=== PATIENT | female | born 1995 | race Caucasian/White ===

== ENCOUNTER 2017-06-08 17:18 | Emergency (ER) | payer OTHER ==
[2017-06-08] MEDS ORDERED: IPRATROPIUM-ALBUTEROL 3 ML NEB INHALATION STA ×2 (17:31→19:24)
[2017-06-08] MEDS ORDERED: methylPREDNISolone SOD SUCCI 125 MG/2 ML VIAL IM ONE (17:31)
--- NOTE | 2017-06-08 17:37 | ED ---
General Adult HPI - General Chief complaint: Upper Respiratory Infection Stated complaint: Congestion/MALOU Time Seen by Provider: 06/08/17 17:25 Source: patient Mode of arrival: wheelchair Limitations: no limitations - History of Present Illness Initial comments: 21-year-old female patient presents to emergency department today for evaluation of cough, wheezing, and shortness of breath. Patient states that she has been sick with upper respiratory symptoms for the last 5-6 days. Patient states her symptoms started with nasal congestion and a sore throat about 6 days ago. She states she then developed a cough. She states over the last couple of days the cough has been much worse, she states that she initially had production of clear sputum but it has now switched to green. She states that she is unable to sleep due to coughing so much at night. She states whenever she does any activity she becomes short of breath. She states that she can hear wheezing throughout the day and at night. She states she does not have a thermometer and is unsure if she's had fevers, however she does report sweats and chills. She states that she does get sharp pains in her chest with coughing. Patient denies any recent abdominal pain, nausea, vomiting , diarrhea, constipation, back pain, numbness, tingling, dizziness, weakness, hematuria, dysuria, urinary urgency, urinary frequency, headache, visual changes , or any other complaints. She does report smoking cigarettes. She states that she has been trying DayQuil and NyQuil without relief of symptoms. She denies any significant past medical history. She denies any use of oral contraceptives, recent travel, leg swelling, or calf pain. - Related Data Previous Rx's Medication Instructions Recorded Albuterol Sulfate [Proair Hfa] 1 - 2 puff INHALATION Q6HR PRN #1 06/08/17 inhaler Guaifenesin/Pseudoephedrne HCl 1 each PO BID #10 tab.er.12h 06/08/17 [Mucinex D ER Tablet] predniSONE 50 mg PO DAILY #7 tablet 06/08/17 Allergies Allergy/AdvReac Type Severity Reaction Status Date / Time Sulfa (Sulfonamide Allergy Dyspnea Verified 06/08/17 18:30 Antibiotics) Review of Systems ROS Statement: Those systems with pertinent positive or pertinent negative responses have been documented in the HPI. ROS Other: All systems not noted in ROS Statement are negative. Past Medical History Past Medical History: No Reported History History of Any Multi-Drug Resistant Organisms: None Reported Past Surgical History: Appendectomy, Cholecystectomy Past Psychological History: Anxiety, Bipolar Smoking Status: Current every day smoker Past Alcohol Use History: Occasional Past Drug Use History: Marijuana General Exam Limitations: no limitations General appearance: alert, in no apparent distress, obese, other (Well-developed , obese female patient sitting upright in bed. Appears to be in no acute distress. Vital signs upon presentation were temperature 99.1F, pulse 110, respirations 20, blood pressure 133/80, pulse ox 92% on room air.) Eye exam: Present: normal appearance, PERRL, EOMI. Absent: scleral icterus, conjunctival injection, periorbital swelling ENT exam: Present: normal exam, normal oropharynx, mucous membranes moist, TM's normal bilaterally Neck exam: Present: normal inspection. Absent: tenderness, meningismus, lymphadenopathy Respiratory exam: Present: normal lung sounds bilaterally, wheezes (Course expiratory wheezes noted throughout all posterior lung nunez.), chest wall tenderness. Absent: respiratory distress, rales, rhonchi, stridor Cardiovascular Exam: Present: regular rate, normal rhythm, normal heart sounds. Absent: systolic murmur, diastolic murmur, rubs, gallop, clicks GI/Abdominal exam: Present: soft, normal bowel sounds. Absent: distended, tenderness, guarding, rebound, rigid Back exam: Present: normal inspection. Absent: tenderness Neurological exam: Present: alert, oriented X3, CN II-XII intact Psychiatric exam: Present: normal affect, normal mood Skin exam: Present: warm, dry, intact, normal color. Absent: rash Course Vital Signs 06/08/17 06/08/17 06/08/17 17:21 17:52 18:39 Temperature 99.1 F 98.8 F Pulse Rate 110 H 110 H 72 Respiratory 20 18 Rate Blood Pressure 133/80 124/57 O2 Sat by Pulse 92 L 95 Oximetry Medical Decision Making - Medical Decision Making 21-year-old female patient percents to emergency department today for evaluation of shortness of breath, cough, and nasal congestion and drainage. Chest x-ray was negative for any acute cardiopulmonary process. Vital signs and symptoms did improve somewhat with albuterol and Atrovent nebulizer treatment. Patient has not been on any recent trips, denies use of oral contraceptives, denies any calf pain or leg swelling. It is thought this time that her symptoms are related to acute bronchitis. She will be discharged home with a course of steroids, given Mucinex D, and a pro-air inhaler for symptom management. She is instructed to increase her fluids. She is instructed to return here immediately for any new, worsening, or concerning symptoms. Patient verbalizes understanding and agrees with this plan. - Radiology Data Radiology results: report reviewed, image reviewed Frontal and lateral views of the chest are obtained and show areas are unremarkable. There is no focal airspace opacity, pleural effusion, or pneumothorax seen. The cardiac silhouette is within normal limits. The osseous structures are intact. Impression by Dr. Grady shows no acute cardiopulmonary process. Disposition Clinical Impression: Acute bronchitis Disposition: HOME SELF-CARE Condition: Good Instructions: Acute Bronchitis (ED), Wheezing (ED) Additional Instructions: Increase fluids. Use medications as directed. Follow-up with her primary care physician for recheck in 1-2 days. Return here immediately for any new, worsening, or concerning symptoms. Prescriptions: Albuterol Sulfate [Proair Hfa] 1 - 2 puff INHALATION Q6HR PRN #1 inhaler PRN Reason: Shortness of Breath/Wheezing Guaifenesin/Pseudoephedrne HCl [Mucinex D ER Tablet] 1 each PO BID #10 tab.er.12h predniSONE 50 mg PO DAILY #7 tablet Referrals: Larry Aragon MD [Primary Care Provider] - 1-2 days Time of Disposition: 19:26
[2017-06-08] MEDS ORDERED: IBUPROFEN 800 MG TAB PO STA (18:26)
[2017-06-08 18:41] VITALS: RESP 18
--- NOTE | 2017-06-08 18:57 | XR ---
EXAMINATION TYPE: XR chest 2V DATE OF EXAM: 06/08/2017 COMPARISON: 02/06/2016 HISTORY: Dyspnea and pain and cough TECHNIQUE: Frontal and lateral views of the chest are obtained. FINDINGS: Airways are unremarkable. There is no focal air space opacity, pleural effusion, or pneumo thorax seen. The cardiac silhouette size is within normal limits. The osseous structures are intac t. IMPRESSION: No acute cardiopulmonary process.
[2017-06-08] MEDS ORDERED: KETOROLAC 60 MG/2 ML VIAL IM STA (19:26)
[2017-06-08 20:02] VITALS: BP 134/92; PULSE 104; TEMP 98.4
== END 2017-06-08 20:01 | disposition home or self-care (01) ==
LOC: EC 17:18
DX: J20.9 Acute bronchitis, unspecified (principal); E66.9 Obesity, unspecified; F17.210 Nicotine dependence, cigarettes, uncomplicated; Z88.2 Allergy status to sulfonamides; Z68.36 Body mass index [BMI] 36.0-36.9, adult
CPT/HCPCS: 94640 ×2; 71020; 99284; 96372 ×2; J2930; J1885

== ENCOUNTER 2018-11-06 00:12 | Emergency (ER) | payer OTHER ==
[2018-11-06 00:20] VITALS: BP 128/85; PULSE 98; RESP 20; TEMP 98.5
[2018-11-06] MEDS ORDERED: guaiFENesin-DM 600/30MG 1 EACH TAB.ER.12H PO STA (00:38)
[2018-11-06] MEDS ORDERED: IBUPROFEN 600 MG TAB PO STA (00:38)
[2018-11-06] MEDS ORDERED: ACETAMINOPHEN TAB 500 MG TAB PO STA (00:38)
--- NOTE | 2018-11-06 00:41 | ED ---
URI HPI - General Chief Complaint: Upper Respiratory Infection Stated Complaint: Sore Throat,Cough Time Seen by Provider: 11/06/18 00:21 Source: patient Mode of arrival: ambulatory Limitations: no limitations - History of Present Illness Initial Comments: 23-year-old female patient presents to the emergency department today for evaluation of cough, nasal congestion, and sore throat. Patient states she's also been feeling nauseated with this. Patient states symptoms started earlier in the afternoon. States she has been feverish and chilled. She denies taking any medications for her symptoms. She denies any sick contacts. States she has not had influenza vaccine. She denies any shortness of breath. Denies any rash. Patient denies any recent chest pain, abdominal pain, nausea, vomiting, diarrhea, constipation, back pain, numbness, tingling, dizziness, weakness, hematuria, dysuria, urinary urgency, urinary frequency, headache, visual changes , or any other complaints. She denies chance of . - Related Data Previous Rx's Medication Instructions Recorded Albuterol Sulfate [Proair Hfa] 1 - 2 puff INHALATION Q6HR PRN #1 06/08/17 inhaler Guaifenesin/Pseudoephedrne HCl 1 each PO BID #10 tab.er.12h 06/08/17 [Mucinex D ER Tablet] predniSONE 50 mg PO DAILY #7 tablet 06/08/17 guaiFENesin-DM 600/30MG [Mucinex 1 each PO Q12HR #10 tab.er.12h 11/06/18 Dm] Allergies Allergy/AdvReac Type Severity Reaction Status Date / Time Sulfa (Sulfonamide Allergy Dyspnea Verified 11/06/18 00:20 Antibiotics) Review of Systems ROS Statement: Those systems with pertinent positive or pertinent negative responses have been documented in the HPI. ROS Other: All systems not noted in ROS Statement are negative. Past Medical History Past Medical History: No Reported History History of Any Multi-Drug Resistant Organisms: None Reported Past Surgical History: Appendectomy, Cholecystectomy Past Psychological History: Anxiety, Bipolar Smoking Status: Current every day smoker Past Alcohol Use History: Occasional Past Drug Use History: Marijuana General Exam Limitations: no limitations General appearance: alert, in no apparent distress, other (This is a well- developed, well-nourished adult female patient in no acute distress. Vital signs upon presentation are temperature 98.5F, pulse 90, respirations 20, blood pressure 120/85, pulse ox 96% on room air.) Eye exam: Present: normal appearance, PERRL, EOMI. Absent: scleral icterus, conjunctival injection, periorbital swelling ENT exam: Present: mucous membranes moist, TM's normal bilaterally (No injection , no effusion). Absent: normal exam, normal oropharynx (Pharyngeal erythema, tonsillar hypertrophy and exudate noted) Neck exam: Present: normal inspection, lymphadenopathy (Anterior cervical lymphadenopathy). Absent: tenderness, meningismus Respiratory exam: Present: normal lung sounds bilaterally. Absent: respiratory distress, wheezes, rales, rhonchi, stridor Cardiovascular Exam: Present: regular rate, normal rhythm, normal heart sounds. Absent: systolic murmur, diastolic murmur, rubs, gallop, clicks GI/Abdominal exam: Present: soft, normal bowel sounds. Absent: distended, tenderness, guarding, rebound, rigid Neurological exam: Present: alert, oriented X3, CN II-XII intact Psychiatric exam: Present: normal affect, normal mood Skin exam: Present: warm, dry, intact, normal color. Absent: rash Course Vital Signs 11/06/18 00:17 Temperature 98.5 F Pulse Rate 98 Respiratory 20 Rate Blood Pressure 128/85 O2 Sat by Pulse 96 Oximetry Medical Decision Making - Medical Decision Making 23-year-old female patient presents to the emergency department today for complaints of sore throat, cough, nasal congestion a started earlier today. Physical examination did reveal pharyngeal erythema with tonsillar hypertrophy and exudate. She did have anterior cervical lymphadenopathy. Patient did have a productive sounding cough. Lungs are clear to auscultation. Chest x-ray showed no acute cardio pulmonary process. Strep and influenza testing was negative. Patient symptoms are consistent with viral upper respiratory infection. We did discuss supportive care. She'll be given a prescription for Mucinex DM. She is instructed to alternate Tylenol and Motrin and instructed to increase fluids. She is instructed to follow-up with her primary care physician for recheck in 1-2 days. Return parameters were discussed in detail. She verbalizes understanding and agrees with this plan. - Lab Data Lab Results 11/06/18 11/06/18 Range/Units 00:49 01:02 Influenza Type A RNA Not Detected (Not Detectd) Influenza Type B (PCR) Not Detected (Not Detectd) Group A Strep Rapid Negative (Negative) - Radiology Data Radiology results: report reviewed, image reviewed Two-view x-ray of the chest is obtained. Report was reviewed in its entirety. Impression by Dr. López shows no evidence of acute disease. Disposition Clinical Impression: Viral upper respiratory infection Disposition: HOME SELF-CARE Condition: Good Instructions (If sedation given, give patient instructions): Upper Respiratory Infection (ED) Additional Instructions: Increase fluids. Take medications as directed. Alternate Tylenol Motrin for discomfort. Follow-up with your primary care physician for recheck in 1-2 days. Return to the emergency department immediately for any new, worsening, or concerning symptoms. Prescriptions: guaiFENesin-DM 600/30MG [Mucinex Dm] 1 each PO Q12HR #10 tab.er.12h Is patient prescribed a controlled substance at d/c from ED?: No Referrals: [facility] [NON-STAFF] - 1-2 days Time of Disposition: 01:41
--- NOTE | 2018-11-06 01:19 | XR ---
History: ITS.REASON XR Reason: Pain Exam: XR CXR 2 VIEWS Comparison: 06/08/2017 FINDINGS: The lungs are clear. The cardiac and mediastinal contours are within limits. The visualized osseous structures appear within limits. IMPRESSION: No evidence of acute disease.
[2018-11-06] MEDS ORDERED: ONDANSETRON 4 MG ODT STARTER PACK 2 TAB BTL PO STA (01:41)
== END 2018-11-06 01:48 | disposition home or self-care (01) ==
LOC: EC 00:12
DX: J06.9 Acute upper respiratory infection, unspecified (principal); F17.200 Nicotine dependence, unspecified, uncomplicated; Z88.2 Allergy status to sulfonamides; Z90.49 Acquired absence of other specified parts of digestive tract
CPT/HCPCS: 71046; 87081; 87430; 87502; 99284

== ENCOUNTER 2018-12-05 19:56 | Emergency (ER) | payer OTHER ==
[2018-12-05] MEDS ORDERED: KETOROLAC 30 MG/ML 1 ML VIAL IVP STA (20:25)
[2018-12-05] MEDS ORDERED: PANTOPRAZOLE 40 MG/10 ML VIAL IVP STA (20:25)
[2018-12-05] MEDS ORDERED: ONDANSETRON 4 MG/2 ML VIAL IVP STA (20:25)
[2018-12-05] MEDS ORDERED: SODIUM CHLORIDE 0.9% 1,000 ML IV STA ×2 (20:25)
--- NOTE | 2018-12-05 20:31 | ED ---
Abdominal Pain HPI - General Source: patient, RN notes reviewed, old records reviewed Mode of arrival: ambulatory Limitations: no limitations <Kerry Boland - Last Filed: 12/05/18 20:31> <Karol Garcia - Last Filed: 12/05/18 22:10> - General Chief Complaint: Abdominal Pain Stated Complaint: Abd pain Time Seen by Provider: 12/05/18 20:02 - History of Present Illness Initial Comments: Patient is a 23-year-old female presents emergency Department today with chief complaint of nausea vomiting diarrhea for the past 3 days. She reports his been having chills off and on. Her complaint of runny nose and URI symptoms. Patient states that she has diffuse abdominal tenderness. Surgical history includes appendectomy and cholecystectomy. No significant past medical history. Patient states that she's had no associated chest pain or shortness breath. (Kerry Boland) - Related Data Home Medications Medication Instructions Recorded Confirmed Acetaminophen Tab [Tylenol Tab] 650 mg PO Q6H PRN 12/05/18 12/05/18 Previous Rx's Medication Instructions Recorded Famotidine [Pepcid] 20 mg PO BID #14 tablet 12/05/18 Ondansetron Odt [Zofran Odt] 4 mg PO Q8HR PRN #12 tab 12/05/18 Allergies Allergy/AdvReac Type Severity Reaction Status Date / Time Sulfa (Sulfonamide Allergy Dyspnea Verified 12/05/18 20:26 Antibiotics) Review of Systems ROS Other: All systems not noted in ROS Statement are negative. <Kerry Boland - Last Filed: 12/05/18 20:31> ROS Other: All systems not noted in ROS Statement are negative. <Karol Garcia P - Last Filed: 12/05/18 22:10> ROS Statement: Those systems with pertinent positive or pertinent negative responses have been documented in the HPI. Past Medical History Past Medical History: No Reported History History of Any Multi-Drug Resistant Organisms: None Reported Past Surgical History: Appendectomy, Cholecystectomy Past Psychological History: Anxiety, Bipolar Smoking Status: Current every day smoker Past Alcohol Use History: Occasional Past Drug Use History: Marijuana <Kerry Boland - Last Filed: 12/05/18 20:31> General Exam Limitations: no limitations General appearance: alert, in no apparent distress Head exam: Present: atraumatic, normocephalic, normal inspection Eye exam: Present: normal appearance, PERRL, EOMI. Absent: scleral icterus, conjunctival injection, periorbital swelling ENT exam: Present: normal exam, mucous membranes moist Neck exam: Present: normal inspection. Absent: tenderness, meningismus, lymphadenopathy Respiratory exam: Present: normal lung sounds bilaterally. Absent: respiratory distress, wheezes, rales, rhonchi, stridor Cardiovascular Exam: Present: regular rate, normal rhythm, normal heart sounds. Absent: systolic murmur, diastolic murmur, rubs, gallop, clicks GI/Abdominal exam: Present: soft, tenderness, normal bowel sounds. Absent: distended, guarding, rebound, rigid Extremities exam: Present: normal inspection, full ROM, normal capillary refill. Absent: tenderness, pedal edema, joint swelling, calf tenderness Back exam: Present: normal inspection Neurological exam: Present: alert, oriented X3, CN II-XII intact Psychiatric exam: Present: normal affect, normal mood Skin exam: Present: warm, dry, intact, normal color. Absent: rash <Kerry Boland - Last Filed: 12/05/18 20:31> - General Exam Comments Initial Comments: 23-year-old female. Alert and oriented 3. No significant distress. (Kerry Boland) Course Vital Signs 12/05/18 19:58 Temperature 98.6 F Pulse Rate 107 H Respiratory 20 Rate Blood Pressure 137/92 O2 Sat by Pulse 97 Oximetry Medical Decision Making - Radiology Data Radiology results: report reviewed <Kerry Boland - Last Filed: 12/05/18 20:31> - Lab Data Result diagrams: 12/05/18 20:33 12/05/18 20:33 <Karol Garcia - Last Filed: 12/05/18 22:10> - Medical Decision Making This is a [id number] female who presents emergency department today with nausea and vomiting diarrhea since the past 4 days. Patient was given IV fluids labwork obtained. Patient's labwork was reviewed and unremarkable. Urinalysis is negative for infection. Patient has had an chills no known fever. She was of diffuse abdominal tenderness. She was given Protonix Toradol and Zofran. Discussed at this time Patient is likely some gastroenteritis. Discussed that she can follow-up with PCP. Discussed return parameters. We'll discharge the Patient with a prescription for nausea medication. (Kerry Boland) I was available for consultation in the emergency department. The history and physical exam were done by the Midlevel Provider. Medical decision making was do ne by the Midlevel Provider. The Midlevel Provider did not contact me for this patient's care. I was not directly involved in this patient's care. (Karol Garcia) - Lab Data Lab Results 12/05/18 12/05/18 12/05/18 Range/Units 20:33 20:33 20:33 WBC 5.9 (3.8-10.6) k/uL RBC 4.70 (3.80-5.40) m/uL Hgb 15.3 (11.4-16.0) gm/dL Hct 44.7 (34.0-46.0) % MCV 95.1 (80.0-100.0) fL MCH 32.6 (25.0-35.0) pg MCHC 34.3 (31.0-37.0) g/dL RDW 12.8 (11.5-15.5) % Plt Count 185 (150-450) k/uL Neutrophils % 58 % Lymphocytes % 29 % Monocytes % 8 % Eosinophils % 4 % Basophils % 0 % Neutrophils # 3.5 (1.3-7.7) k/uL Lymphocytes # 1.7 (1.0-4.8) k/uL Monocytes # 0.5 (0-1.0) k/uL Eosinophils # 0.2 (0-0.7) k/uL Basophils # 0.0 (0-0.2) k/uL Sodium 138 (137-145) mmol/L Potassium 4.0 (3.5-5.1) mmol/L Chloride 106 (98-107) mmol/L Carbon Dioxide 24 (22-30) mmol/L Anion Gap 8 mmol/L BUN 12 (7-17) mg/dL Creatinine 0.59 (0.52-1.04) mg/dL Est GFR (CKD-EPI)AfAm >90 (>60 ml/min/1.73 sqM) Est GFR (CKD-EPI)NonAf >90 (>60 ml/min/1.73 sqM) Glucose 114 H (74-99) mg/dL Calcium 8.7 (8.4-10.2) mg/dL Total Bilirubin 0.6 (0.2-1.3) mg/dL AST 23 (14-36) U/L ALT 43 (9-52) U/L Alkaline Phosphatase 66 (38-126) U/L Total Protein 6.7 (6.3-8.2) g/dL Albumin 3.7 (3.5-5.0) g/dL Amylase <30 L (30-110) U/L Lipase 70 (23-300) U/L Urine Color Urine Appearance (Clear) Urine pH (5.0-8.0) Ur Specific [place] (1.001-1.035) Urine Protein (Negative) Urine Glucose (UA) (Negative) Urine Ketones (Negative) Urine Blood (Negative) Urine Nitrite (Negative) Urine Bilirubin (Negative) Urine Urobilinogen (<2.0) mg/dL Ur Leukocyte Esterase (Negative) Urine RBC (0-5) /hpf Urine WBC (0-5) /hpf Ur Squamous Epith Cells (0-4) /hpf Urine Bacteria (None) /hpf Urine Mucus (None) /hpf Urine HCG, Qual (Not Detectd) Influenza Type A RNA Not Detected (Not Detectd) Influenza Type B (PCR) Not Detected (Not Detectd) 12/05/18 12/05/18 Range/Units 20:55 20:55 WBC (3.8-10.6) k/uL RBC (3.80-5.40) m/uL Hgb (11.4-16.0) gm/dL Hct (34.0-46.0) % MCV (80.0-100.0) fL MCH (25.0-35.0) pg MCHC (31.0-37.0) g/dL RDW (11.5-15.5) % Plt Count (150-450) k/uL Neutrophils % % Lymphocytes % % Monocytes % % Eosinophils % % Basophils % % Neutrophils # (1.3-7.7) k/uL Lymphocytes # (1.0-4.8) k/uL Monocytes # (0-1.0) k/uL Eosinophils # (0-0.7) k/uL Basophils # (0-0.2) k/uL Sodium (137-145) mmol/L Potassium (3.5-5.1) mmol/L Chloride (98-107) mmol/L Carbon Dioxide (22-30) mmol/L Anion Gap mmol/L BUN (7-17) mg/dL Creatinine (0.52-1.04) mg/dL Est GFR (CKD-EPI)AfAm (>60 ml/min/1.73 sqM) Est GFR (CKD-EPI)NonAf (>60 ml/min/1.73 sqM) Glucose (74-99) mg/dL Calcium (8.4-10.2) mg/dL Total Bilirubin (0.2-1.3) mg/dL AST (14-36) U/L ALT (9-52) U/L Alkaline Phosphatase (38-126) U/L Total Protein (6.3-8.2) g/dL Albumin (3.5-5.0) g/dL Amylase (30-110) U/L Lipase (23-300) U/L Urine Color Yellow Urine Appearance Clear (Clear) Urine pH 5.5 (5.0-8.0) Ur Specific [place] 1.024 (1.001-1.035) Urine Protein Trace H (Negative) Urine Glucose (UA) Negative (Negative) Urine Ketones Negative (Negative) Urine Blood Negative (Negative) Urine Nitrite Negative (Negative) Urine Bilirubin Negative (Negative) Urine Urobilinogen 2.0 (<2.0) mg/dL Ur Leukocyte Esterase Trace H (Negative) Urine RBC <1 (0-5) /hpf Urine WBC 5 (0-5) /hpf Ur Squamous Epith Cells 4 (0-4) /hpf Urine Bacteria Rare H (None) /hpf Urine Mucus Few H (None) /hpf Urine HCG, Qual Not Detected (Not Detectd) Influenza Type A RNA (Not Detectd) Influenza Type B (PCR) (Not Detectd) - Radiology Data Normal chest. No changes. Abdominal x-ray shows no acute abdomen. No changes. (Kerry Boland) Disposition Is patient prescribed a controlled substance at d/c from ED?: No Time of Disposition: 22:01 <Kerry Boland - Last Filed: 12/05/18 20:31> <Karol Garcia - Last Filed: 12/05/18 22:10> Clinical Impression: Gastroenteritis Disposition: HOME SELF-CARE Condition: Good Instructions (If sedation given, give patient instructions): Gastroenteritis (ED) Additional Instructions: Patient was supposed follow-up with primary care physician. Patient can return to the emergency department if any alarming signs or symptoms occur. Use nausea medicine as needed for vomiting. Prescriptions: Famotidine [Pepcid] 20 mg PO BID #14 tablet Ondansetron Odt [Zofran Odt] 4 mg PO Q8HR PRN #12 tab PRN Reason: Nausea Referrals: Larry Aragon MD [Primary Care Provider] - 1-2 days
[2018-12-05 21:04] LABS: Appearance,Urine Clear (Clear); Bacteria,Urine Rare /hpf; Bilirubin,Urine Negative (Negative); Blood,Urine Negative (Negative); Color,Urine Yellow; Glucose,Urine (UA) Negative (Negative); Ketones,Urine Negative (Negative); Leukocyte Esterase,Urine Trace (Negative); Mucus,Urine Few /hpf; Nitrite,Urine Negative (Negative); PH, Urine 5.5 (5.0-8.0); Protein,Urine Trace (Negative); RBC,Urine <1 /hpf (0-5); Specific Gravity,Urine 1.024 (1.001-1.035); Squamous Epithelial Cell,Urine 4 /hpf (0-4); WBC,Urine 5 /hpf (0-5)
[2018-12-05 21:05] LABS: Basophils % (A) 0 %; Eosinophils # (A) 0.2 k/uL (0-0.7); Eosinophils % (A) 4 %; HCT 44.7 % (34.0-46.0); HGB 15.3 gm/dL (11.4-16.0); Lymphocytes # (A) 1.7 k/uL (1.0-4.8); Lymphocytes % (A) 29 %; MCH 32.6 pg (25.0-35.0); MCHC 34.3 g/dL (31.0-37.0); MCV 95.1 fL (80.0-100.0); Mean Platelet Volume 9.2; Monocytes # (A) 0.5 k/uL (0-1.0); Monocytes % (A) 8 %; Neutrophils # (A) 3.5 k/uL (1.3-7.7); Neutrophils % (A) 58 %; Platelet Count 185 k/uL (150-450); RDW 12.8 % (11.5-15.5); WBC 5.9 k/uL (3.8-10.6)
[2018-12-05 21:21] LABS: ALT 43 U/L (9-52); AST 23 U/L (14-36); Albumin 3.7 g/dL (3.5-5.0); Alkaline Phosphatase 66 U/L (38-126); Amylase <30 U/L (30-110); Anion Gap 8 mmol/L; Blood Urea Nitrogen 12 mg/dL (7-17); Calcium 8.7 mg/dL (8.4-10.2); Carbon Dioxide 24 mmol/L (22-30); Chloride 106 mmol/L (98-107); Glucose 114 mg/dL (74-99); Lipase 70 U/L (23-300); Sodium 138 mmol/L (137-145); Total Bilirubin 0.6 mg/dL (0.2-1.3); Total Protein 6.7 g/dL (6.3-8.2)
--- NOTE | 2018-12-05 21:36 | XR ---
EXAMINATION TYPE: XR chest 2V DATE OF EXAM: 12/05/2018 COMPARISON: 11/06/2018 HISTORY: Abdominal pain TECHNIQUE: Frontal and lateral views of the chest are obtained. FINDINGS: Heart and mediastinum are normal. Lungs are clear. Diaphragm is normal. Bony thorax appear s normal. IMPRESSION: Normal chest. No change.
--- NOTE | 2018-12-05 21:37 | XR ---
EXAMINATION TYPE: XR KUB DATE OF EXAM: 12/05/2018 COMPARISON: 02/06/2016 HISTORY: Abdominal pain TECHNIQUE: 2 views FINDINGS: 2 views upright show no sign of intestinal obstruction or pneumoperitoneum. There are clips from cholecystectomy. Bowel gas pattern is normal. There is no sign of a mass. There are no patholog ic calcifications. IMPRESSION: Nonacute abdomen. No change.
[2018-12-05 22:16] VITALS: BP 133/77; PULSE 93; RESP 14; TEMP 98
== END 2018-12-05 22:17 | disposition home or self-care (01) ==
LOC: EC 19:56
DX: K52.9 Noninfective gastroenteritis and colitis, unspecified (principal); R09.89 Other specified symptoms and signs involving the circulatory and respiratory systems; F17.200 Nicotine dependence, unspecified, uncomplicated; Z88.2 Allergy status to sulfonamides; Z90.49 Acquired absence of other specified parts of digestive tract
CPT/HCPCS: 99284; 96374; 96375 ×2; 36415; 80053; 82150; 83690; 85025; 81001; 81025; 87086; 87502; 71046; 74018; J2405; J1885; C9113

== ENCOUNTER 2018-12-10 00:18 | Emergency (ER) | payer OTHER ==
[2018-12-10] MEDS ORDERED: SODIUM CHLORIDE 0.9% 2,000 ML IV STA (01:12)
[2018-12-10] MEDS ORDERED: diphenhydrAMINE 50 MG/ML 1 ML VIAL IVP STA (01:12)
[2018-12-10] MEDS ORDERED: KETOROLAC 30 MG/ML 1 ML VIAL IVP STA (01:12)
[2018-12-10] MEDS ORDERED: METOCLOPRAMIDE 5 MG/ML 2 ML VIAL IVP STA (01:12)
--- NOTE | 2018-12-10 01:22 | ED ---
Abdominal Pain HPI - General Chief Complaint: Abdominal Pain Stated Complaint: Vomiting, Nausea, Diarrhea Time Seen by Provider: 12/10/18 00:55 Source: patient Mode of arrival: ambulatory Limitations: no limitations - History of Present Illness Initial Comments: 23-year-old female patient presents to the emergency department today for evaluation of vomiting and diarrhea. Patient states she's been sick for over a week with these symptoms. Patient states that she has had vomiting and diarrhea on a daily basis. She is reporting green watery bowel movements. She is reporting bilious emesis. She denies any hematemesis, hematochezia, or melena. States she has had chills and sweats. Has not checked her temperature. States she does have some intermittent sharp abdominal pains with this but states they are migrating and are not located to one area. Patient does have history of cholecystectomy and appendectomy. Denies any recent travel or sick contacts. Denies any recent antibiotic use. Patient denies any recent rash, shortness breath, chest pain, back pain, numbness, tingling, dizziness, weakness, hematuria, dysuria, urinary urgency, urinary frequency, headache, visual changes, or any other complaints. She denies any chance of . Patient was seen and evaluated for similar symptoms one week ago, states symptoms have not improved despite use of medication she was prescribed. - Related Data Home Medications Medication Instructions Recorded Confirmed Acetaminophen Tab [Tylenol Tab] 650 mg PO Q6H PRN 12/05/18 12/05/18 Previous Rx's Medication Instructions Recorded Famotidine [Pepcid] 20 mg PO BID #14 tablet 12/05/18 Ondansetron Odt [Zofran Odt] 4 mg PO Q8HR PRN #12 tab 12/05/18 Cephalexin [Keflex] 500 mg PO Q6H #28 cap 12/10/18 Metoclopramide [Reglan] 10 mg PO Q8H PRN #15 tab 12/10/18 Allergies Allergy/AdvReac Type Severity Reaction Status Date / Time Sulfa (Sulfonamide Allergy Dyspnea Verified 12/10/18 00:45 Antibiotics) Review of Systems ROS Statement: Those systems with pertinent positive or pertinent negative responses have been documented in the HPI. ROS Other: All systems not noted in ROS Statement are negative. Past Medical History Past Medical History: No Reported History History of Any Multi-Drug Resistant Organisms: None Reported Past Surgical History: Appendectomy, Cholecystectomy Past Psychological History: Anxiety, Bipolar, Depression, Schizophrenia Smoking Status: Current every day smoker Past Alcohol Use History: Occasional Past Drug Use History: Marijuana General Exam Limitations: no limitations General appearance: alert, in no apparent distress, other (Physical well- developed, well-nourished adult female patient in no acute distress. Vital signs upon presentation are temperature 97.9F, pulse 85, respirations 16, blood pressure 144/92, pulse ox 97% on room air.) Eye exam: Present: normal appearance, PERRL, EOMI. Absent: scleral icterus, conjunctival injection, periorbital swelling ENT exam: Present: normal exam, normal oropharynx, mucous membranes moist Respiratory exam: Present: normal lung sounds bilaterally. Absent: respiratory distress, wheezes, rales, rhonchi, stridor Cardiovascular Exam: Present: regular rate, normal rhythm, normal heart sounds. Absent: systolic murmur, diastolic murmur, rubs, gallop, clicks GI/Abdominal exam: Present: soft, normal bowel sounds. Absent: distended, tenderness, guarding, rebound, rigid Neurological exam: Present: alert, oriented X3, CN II-XII intact Psychiatric exam: Present: normal affect, normal mood Skin exam: Present: warm, dry, intact, normal color. Absent: rash Course Vital Signs 12/10/18 12/10/18 00:42 02:53 Temperature 97.9 F 97.0 F L Pulse Rate 85 76 Respiratory 16 18 Rate Blood Pressure 144/92 103/69 O2 Sat by Pulse 97 97 Oximetry Medical Decision Making - Medical Decision Making 23-year-old female patient presents to the emergency department today for evaluation of vomiting and diarrhea for the last week. She reported subjective fevers. Physical examination is unremarkable. Abdomen is soft and nontender. No CVA tenderness. She is afebrile with normal vital signs. Labs reviewed and are unremarkable. Urinalysis shows evidence of infection but no ketones. Did discuss findings and results with the patient. We did discuss gastroenteritis as a cause for her symptoms. She'll be given a prescription for Reglan. She is instructed to start a clear liquid diet and advance as tolerated. She'll be given prescription for antibiotics for urinary tract infection. She is instructed follow up with her primary care physician for recheck as soon as possible. Return parameters discussed in detail. She verbalizes understanding and agrees with this plan. - Lab Data Result diagrams: 12/10/18 01:22 12/10/18 01:22 Lab Results 12/10/18 12/10/18 12/10/18 Range/Units 01:22 01:22 01:22 WBC 7.7 (3.8-10.6) k/uL RBC 4.47 (3.80-5.40) m/uL Hgb 14.1 (11.4-16.0) gm/dL Hct 42.2 (34.0-46.0) % MCV 94.2 (80.0-100.0) fL MCH 31.5 (25.0-35.0) pg MCHC 33.5 (31.0-37.0) g/dL RDW 13.4 (11.5-15.5) % Plt Count 186 (150-450) k/uL Neutrophils % 49 % Lymphocytes % 40 % Monocytes % 5 % Eosinophils % 4 % Basophils % 1 % Neutrophils # 3.7 (1.3-7.7) k/uL Lymphocytes # 3.1 (1.0-4.8) k/uL Monocytes # 0.4 (0-1.0) k/uL Eosinophils # 0.3 (0-0.7) k/uL Basophils # 0.0 (0-0.2) k/uL Sodium 139 (137-145) mmol/L Potassium 4.5 (3.5-5.1) mmol/L Chloride 108 H (98-107) mmol/L Carbon Dioxide 22 (22-30) mmol/L Anion Gap 9 mmol/L BUN 15 (7-17) mg/dL Creatinine 0.57 (0.52-1.04) mg/dL Est GFR (CKD-EPI)AfAm >90 (>60 ml/min/1.73 sqM) Est GFR (CKD-EPI)NonAf >90 (>60 ml/min/1.73 sqM) Glucose 94 (74-99) mg/dL Calcium 9.2 (8.4-10.2) mg/dL Total Bilirubin 0.4 (0.2-1.3) mg/dL AST 21 (14-36) U/L ALT 46 (9-52) U/L Alkaline Phosphatase 65 (38-126) U/L Total Protein 6.2 L (6.3-8.2) g/dL Albumin 3.5 (3.5-5.0) g/dL Amylase <30 L (30-110) U/L Lipase 70 (23-300) U/L Urine Color Urine Appearance (Clear) Urine pH (5.0-8.0) Ur Specific [place] (1.001-1.035) Urine Protein (Negative) Urine Glucose (UA) (Negative) Urine Ketones (Negative) Urine Blood (Negative) Urine Nitrite (Negative) Urine Bilirubin (Negative) Urine Urobilinogen (<2.0) mg/dL Ur Leukocyte Esterase (Negative) Urine RBC (0-5) /hpf Urine WBC (0-5) /hpf Ur Squamous Epith Cells (0-4) /hpf Amorphous Sediment (None) /hpf Urine Bacteria (None) /hpf Urine Mucus (None) /hpf Urine HCG, Qual Not Detected (Not Detectd) 12/10/18 Range/Units 01:22 WBC (3.8-10.6) k/uL RBC (3.80-5.40) m/uL Hgb (11.4-16.0) gm/dL Hct (34.0-46.0) % MCV (80.0-100.0) fL MCH (25.0-35.0) pg MCHC (31.0-37.0) g/dL RDW (11.5-15.5) % Plt Count (150-450) k/uL Neutrophils % % Lymphocytes % % Monocytes % % Eosinophils % % Basophils % % Neutrophils # (1.3-7.7) k/uL Lymphocytes # (1.0-4.8) k/uL Monocytes # (0-1.0) k/uL Eosinophils # (0-0.7) k/uL Basophils # (0-0.2) k/uL Sodium (137-145) mmol/L Potassium (3.5-5.1) mmol/L Chloride (98-107) mmol/L Carbon Dioxide (22-30) mmol/L Anion Gap mmol/L BUN (7-17) mg/dL Creatinine (0.52-1.04) mg/dL Est GFR (CKD-EPI)AfAm (>60 ml/min/1.73 sqM) Est GFR (CKD-EPI)NonAf (>60 ml/min/1.73 sqM) Glucose (74-99) mg/dL Calcium (8.4-10.2) mg/dL Total Bilirubin (0.2-1.3) mg/dL AST (14-36) U/L ALT (9-52) U/L Alkaline Phosphatase (38-126) U/L Total Protein (6.3-8.2) g/dL Albumin (3.5-5.0) g/dL Amylase (30-110) U/L Lipase (23-300) U/L Urine Color Yellow Urine Appearance Cloudy H (Clear) Urine pH 5.5 (5.0-8.0) Ur Specific [place] 1.011 (1.001-1.035) Urine Protein Negative (Negative) Urine Glucose (UA) Negative (Negative) Urine Ketones Negative (Negative) Urine Blood Trace H (Negative) Urine Nitrite Negative (Negative) Urine Bilirubin Negative (Negative) Urine Urobilinogen <2.0 (<2.0) mg/dL Ur Leukocyte Esterase Large H (Negative) Urine RBC 9 H (0-5) /hpf Urine WBC 60 H (0-5) /hpf Ur Squamous Epith Cells 29 H (0-4) /hpf Amorphous Sediment Rare H (None) /hpf Urine Bacteria Moderate H (None) /hpf Urine Mucus Rare H (None) /hpf Urine HCG, Qual (Not Detectd) - Radiology Data Radiology results: report reviewed, image reviewed Disposition Clinical Impression: Urinary tract infection, Gastroenteritis Disposition: HOME SELF-CARE Condition: Good Instructions (If sedation given, give patient instructions): Urinary Tract Infection in Women (ED), Gastroenteritis (ED) Additional Instructions: Start with clear liquid diet and advance as tolerated. Use medications as directed. Complete antibiotic prescription in full. Return to the emergency department immediately for any new, worsening, or concerning symptoms Prescriptions: Cephalexin [Keflex] 500 mg PO Q6H #28 cap Metoclopramide [Reglan] 10 mg PO Q8H PRN #15 tab PRN Reason: Vomiting Is patient prescribed a controlled substance at d/c from ED?: No Referrals: Larry Aragon MD [Primary Care Provider] - 1-2 days Time of Disposition: 02:28
[2018-12-10 01:35] LABS: Basophils % (A) 1 %; Eosinophils # (A) 0.3 k/uL (0-0.7); Eosinophils % (A) 4 %; HCT 42.2 % (34.0-46.0); HGB 14.1 gm/dL (11.4-16.0); Lymphocytes # (A) 3.1 k/uL (1.0-4.8); Lymphocytes % (A) 40 %; MCH 31.5 pg (25.0-35.0); MCHC 33.5 g/dL (31.0-37.0); MCV 94.2 fL (80.0-100.0); Mean Platelet Volume 9.1; Monocytes # (A) 0.4 k/uL (0-1.0); Monocytes % (A) 5 %; Neutrophils # (A) 3.7 k/uL (1.3-7.7); Neutrophils % (A) 49 %; Platelet Count 186 k/uL (150-450); RBC 4.47 m/uL (3.80-5.40); RDW 13.4 % (11.5-15.5); WBC 7.7 k/uL (3.8-10.6)
[2018-12-10 01:43] LABS: ALT 46 U/L (9-52); AST 21 U/L (14-36); Albumin 3.5 g/dL (3.5-5.0); Alkaline Phosphatase 65 U/L (38-126); Amylase <30 U/L (30-110); Anion Gap 9 mmol/L; Blood Urea Nitrogen 15 mg/dL (7-17); Calcium 9.2 mg/dL (8.4-10.2); Carbon Dioxide 22 mmol/L (22-30); Chloride 108 mmol/L (98-107); Glucose 94 mg/dL (74-99); Lipase 70 U/L (23-300); Potassium 4.5 mmol/L (3.5-5.1); Sodium 139 mmol/L (137-145); Total Bilirubin 0.4 mg/dL (0.2-1.3); Total Protein 6.2 g/dL (6.3-8.2)
[2018-12-10 01:54] LABS: Amorphous Sediment,Urine Rare /hpf; Appearance,Urine Cloudy (Clear); Bacteria,Urine Moderate /hpf; Bilirubin,Urine Negative (Negative); Blood,Urine Trace (Negative); Color,Urine Yellow; Glucose,Urine (UA) Negative (Negative); Ketones,Urine Negative (Negative); Leukocyte Esterase,Urine Large (Negative); Mucus,Urine Rare /hpf; Nitrite,Urine Negative (Negative); PH, Urine 5.5 (5.0-8.0); Protein,Urine Negative (Negative); RBC,Urine 9 /hpf (0-5); Specific Gravity,Urine 1.011 (1.001-1.035); Squamous Epithelial Cell,Urine 29 /hpf (0-4); Urobilinogen,Urine <2.0 mg/dL (<2.0); WBC,Urine 60 /hpf (0-5)
[2018-12-10] MEDS ORDERED: cefTRIAXone IN SWFI 1,000 MG/10 ML SYRINGE IVP STA (02:26)
[2018-12-10 02:54] VITALS: BP 103/69; PULSE 76; RESP 18; TEMP 97
[2018-12-10] MEDS ORDERED: cefTRIAXone 1,000 MG VIAL (IM USE) IM STA (03:00)
== END 2018-12-10 02:53 | disposition home or self-care (01) ==
LOC: EC 00:18
DX: K52.9 Noninfective gastroenteritis and colitis, unspecified (principal); N39.0 Urinary tract infection, site not specified; F17.200 Nicotine dependence, unspecified, uncomplicated; Z88.2 Allergy status to sulfonamides; Z90.49 Acquired absence of other specified parts of digestive tract
CPT/HCPCS: 36415; 80053; 82150; 83690; 85025; 81001; 81025; 99284; 96374; 96375 ×2; 96361 ×2; 96372; J1200; J2765; J0696; J1885

== ENCOUNTER 2019-01-20 04:19 | Emergency (ER) | payer OTHER ==
[2019-01-20 04:32] VITALS: BP 125/83; PULSE 70; TEMP 97.5
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
[2019-01-20] MEDS ORDERED: IBUPROFEN 600 MG STARTER PACK 4 TAB BTL PO STA (06:29)
[2019-01-20 07:02] VITALS: RESP 20
== END 2019-01-20 07:02 | disposition home or self-care (01) ==
LOC: EC 04:19
DX: B34.9 Viral infection, unspecified (principal); M21.622 Bunionette of left foot; F17.210 Nicotine dependence, cigarettes, uncomplicated; Z90.49 Acquired absence of other specified parts of digestive tract; Z88.2 Allergy status to sulfonamides; Z95.0 Presence of cardiac pacemaker
CPT/HCPCS: 99283

== ENCOUNTER 2025-03-13 13:26 | Emergency (ER) | payer OTHER ==
--- NOTE | 2025-03-13 14:01 | ED ---
General Adult HPI - General Source: patient, RN notes reviewed Mode of arrival: ambulatory Limitations: no limitations <Isidra Martinez - Last Filed: 03/13/25 14:04> <Petty Donaldson - Last Filed: 03/16/25 11:23> - General Stated complaint: Abn/Back Pain/Heavy Bleeding Time Seen by Provider: 03/13/25 13:58 - History of Present Illness Initial comments: Quick note: 29 year old female presents to the emergency department for evaluation of vaginal bleeding with abdominal cramping. She notes it started this morning. Notes irregular menstrual cycles typically. LMP about 1 year ago. (Isidra Martinez) Patient is a pelasant 29 y/o female presenting today for vaginal bleeding. Pt states has hx of irregular periods and has not had a period in about 1 year. Does not believe she could be since she has not been sexually active in over a year.Went through 3 tampons so far today. Notes associated lower abdominal cramps and low back discomfort. Denies fevers, chills, vaginal discharge, dysuria, hematuria, numbness, weakness, lightheadedness, dizziness or shortness of breath. Has a follow up appointment already scheduled with her OB in less than a week. (Petty Donaldson) - Related Data Home Medications Medication Instructions Recorded Confirmed Acetaminophen Tab [Tylenol Tab] 650 mg PO Q6H PRN 12/05/18 12/05/18 Previous Rx's Medication Instructions Recorded Famotidine [Pepcid] 20 mg PO BID #14 tablet 12/05/18 Ondansetron Odt [Zofran Odt] 4 mg PO Q8HR PRN #12 tab 12/05/18 Cephalexin [Keflex] 500 mg PO Q6H #28 cap 12/10/18 Metoclopramide [Reglan] 10 mg PO Q8H PRN #15 tab 12/10/18 Allergies Allergy/AdvReac Type Severity Reaction Status Date / Time Sulfa (Sulfonamide Allergy Dyspnea Verified 01/22/19 16:49 Antibiotics) Review of Systems ROS Other: All systems not noted in ROS Statement are negative. <Isidra Martinez - Last Filed: 03/13/25 14:04> ROS Other: All systems not noted in ROS Statement are negative. <Petty Donaldson - Last Filed: 03/16/25 11:23> ROS Statement: Those systems with pertinent positive or pertinent negative responses have been documented in the HPI. Past Medical History Past Medical History: No Reported History History of Any Multi-Drug Resistant Organisms: None Reported Past Surgical History: Appendectomy, Cholecystectomy Past Psychological History: Anxiety, Bipolar, Depression, Schizophrenia Past Alcohol Use History: Occasional Past Drug Use History: Marijuana <Isidra Martinez - Last Filed: 03/13/25 14:04> General Exam <Isidra Martinez - Last Filed: 03/13/25 14:04> <Petty Donaldson - Last Filed: 03/16/25 11:23> - General Exam Comments Initial Comments: Visual Physical Exam Vital signs reviewed General: Well-appearing, nontoxic, no acute distress. Head: Normocephalic, atraumatic Eyes: PERRLA, EOMI ENT: Airway patent Chest: Nonlabored breathing Skin: No visual rash, normal skin tone Neuro: Alert and oriented 3 Musculoskeletal: No gross abnormalities (Isidra Martinez) PE: CONSTITUTIONAL: No apparent distress, well appearing SKIN: Warm, dry, no jaundice, hives or petechiae EYES: Pupils are equally round, extraocular movements intact without nystagmus, clear conjunctiva, non-icteric sclera HENT: Normocephalic, atraumatic, moist mucus membranes, oropharynx clear without exudates NECK: , Full range of motion, normal appearance PULMONARY: Clear to auscultation without wheezes, rhonchi, or rales, normal excursion, no accessory muscle use and no stridor CARDIOVASCULAR: Regular rate, rhythm, normal S1 and S2. No appreciated murmurs, rubs or gallops. Strong radial pulses with intact distal perfusion. No lower extremity edema GASTROINTESTINAL: Soft, active bowel sounds throughout, non-tender, non-di stended, no palpable masses, no rebound or guarding. No hepatosplenomegaly GENITOURINARY: MUSCULOSKELETAL: Extremities have no gross deformity, no edema, redness, or swelling. NEUROLOGIC:_a/o x 3, GCS 15, normal mentation and speech. Moves all extremities x 4 without motor or sensory deficit PSYCHIATRIC:_normal mood and affect, thought process is clear and linear (Petty Donaldson) Course Vital Signs 06/27/25 06/27/25 06/27/25 13:59 17:27 18:36 Temperature 97.9 F 98.4 F 98.3 F Pulse Rate 98 77 68 Respiratory 16 19 19 Rate Blood Pressure 137/93 143/95 132/83 O2 Sat by Pulse 98 97 96 Oximetry Medical Decision Making <Isidra Martinez - Last Filed: 03/13/25 14:04> - Lab Data Result diagrams: 03/13/25 14:12 03/13/25 14:12 <Petty - Last Filed: 03/16/25 11:23> - Medical Decision Making Quick note preformed and electronically signed by Isidra Martinez PA-C (Isidra Martinez) Was pt. sent in by a medical professional or institution ([facility], [facility] [employer] [facility], urgent care, hospital, or halfway...) When possible be specific @ -No Did you speak to anyone other than the patient for history (EMS, parent, family, police, friend...)? What history was obtained from this source @ -No Did you review nursing and triage notes (agree or disagree)? Why? @ -I reviewed nursing and triage notes Were old charts reviewed (outside hosp., previous admission, EMS record, old EKG, old radiological studies, urgent care reports/EKG's, halfway records)? Report findings @ -Medical records reviewed Differential Diagnosis (chest pain, altered mental status, abdominal pain women, abdominal pain men, vaginal bleeding, weakness, fever, dyspnea, syncope, head ache, dizziness, GI bleed, back pain, seizure, CVA, palpatations, mental health, musculoskeletal)? @Differential Vaginal Bleeding: Spontaneous , threatened , molar , ectopic , bloody show, incompetent cervix, abruptioplacenta, placenta previa, uterine rupture, dysfunctional uterine bleeding, hemorrhage, uterine fibroids, this is not meant to be an all-inclusive list. EKG interpreted by me (3pts min.). @ -As above X-rays interpreted by me (1pt min.). @ -None done CT interpreted by me (1pt min.). @ -None done U/S interpreted by me (1pt. min.). Personally reviewed ultrasound pelvis I see no evidence of masses I agree with radiologist interpretation What testing was considered but not performed or refused? (CT, X-rays, U/S, labs)? Why? @ -None What meds were considered but not given or refused? Why? @ -None Did you discuss the management of the patient with other professionals (professionals i.e. , PA, [employer]INTER, lab, RT, psych nurse, social media marketing manager, sole polisher, teacher, retail loan officer, skilled nursing case manager)? Give summary @ -No Was smoking cessation discussed for >3mins.? @ -No Was critical care preformed (if so, how long)? @ -No Were there social determinants of health that impacted care today? How? (Homelessness, low income, unemployed, alcoholism, drug addiction, transportation, low edu. Level, literacy, decrease access to med. care, care home, rehab)? @ -No Was there de-escalation of care discussed even if they declined (Discuss DNR or withdrawal of care, Hospice)? @ -No What co-morbidities impacted this encounter? (DM, HTN, Smoking, COPD, CAD, Can cer, CVA, ARF, Chemo, Hep., AIDS, mental health diagnosis, sleep apnea, morbid obesity)? @ -Obesity Was patient admitted / discharged? Hospital course, mention meds given and route, prescriptions, significant lab abnormalities, going to OR and other pertinent info. @Discharge-this is a pleasant 29-year-old female presenting today for vaginal bleeding. Patient was initially seen and assessed in the waiting room by triage provider due to ED overflow capacity because of multiple boarding patients. On my assessment patient is resting comfortably in a hallway bed. I did obtain patient's permission to discuss her care and perform assessment in the hallway to which she was agreeable. Vital signs are stable.Labs and imaging reviewed. Grossly within normal limits. Abnormal values not concerning for acute pathology related to presenting complaint. test negative. There is a large am ount of blood in the urine with trace leukocyte esterase however negative nitrites. Suspect blood is secondary to vaginal bleeding. Hemoglobin is within normal limits. Ultrasound was limited due to body habitus however showed no acute abnormality. Patient states that she would like to be discharged at this point and her bleeding has slowed. Discussed findings with patient as well as signs and symptoms to monitor for warranting return to the ED such as bleeding through more than 1 pad an hour for greater than 2 hours, lightheadedness, dizziness or shortness of breath. Patient has established follow-up and was discharged in stable condition. In my medical judgment there is currently no evidence of an immediate life- threatening or surgical condition. Discharge is therefore indicated at this time. Discharge treatment instructions, follow up instructions, and appropriate emergency department return precautions were discussed with the patient and/or medical decision maker. Patient and/or medical decision maker expressed understanding of and agreed with the treatment plan, follow up instructions, and emergency department return precaution. All patient's and/or medical decision maker's questions were answered. The patient was advised that a small risk still exists that a serious condition could develop and was therefore instructed to return to the ED for any changes in symptoms, persistent symptoms, inability to obtain proper follow-up or for any further concerns. Patient received verbal and written instructions for this condition. Undiagnosed new problem with uncertain prognosis? @ -No Drug Therapy requiring intensive monitoring for toxicity (Heparin, Nitro, Insulin, Cardizem)? @ -No Were any procedures done? @ -No Diagnosis/symptom? @Dysfunctional uterine bleeding Acute, or Chronic, or Acute on Chronic? @Acute Uncomplicated (without systemic symptoms) or Complicated (systemic symptoms)? @ -Uncomplicated Side effects of treatment? @ -No Exacerbation, Progression, or Severe Exacerbation? @ -No Poses a threat to life or bodily function? How? (Chest pain, USA, PR, pneumonia, PE, COPD, DKA, ARF, appy, cholecystitis, CVA, Diverticulitis, Homicidal, Suicidal, threat to staff... and all critical care pts) @ -No (Petty Donaldson) - Lab Data Lab Results 03/13/25 03/13/25 03/13/25 Range/Units 14:12 14:12 14:12 WBC 6.95 (4.50-10.00) 10*3/uL RBC 4.63 (4.10-5.20) 10*6/uL Hgb 15.0 (12.0-15.0) g/dL Hct 42.8 (37.2-46.3) % MCV 92.4 (80.0-97.0) fL MCH 32.4 H (27.0-32.0) pg MCHC 35.0 (32.0-37.0) g/dL Plt Count (140-440) 10*3/uL MPV 13.6 H (9.5-12.2) fL Immature Gran % (Auto) 0.3 % Neutrophils % 53.2 % Lymphocytes % 34.2 % Monocytes % 8.5 % Eosinophils % 3.2 % Basophils % 0.6 % Immature Gran # 0.02 (0.00-0.04) 10*3/uL Neutrophils # 3.70 (1.80-7.70) 10*3/uL Lymphocytes # 2.38 (0.90-5.00) 10*3/uL Monocytes # 0.59 (0.20-1.00) 10*3/uL Eosinophils # 0.22 (0.04-0.35) 10*3/uL Basophils # 0.04 (0.00-0.10) 10*3/uL Manual Slide Review Performed Immature Plt Fraction 26.0 H (1.1-6.1) % RBC Morphology Normal PT 10.5 (10.0-12.5) sec INR 0.9 (<1.2) APTT 22.9 (22.0-30.0) sec Sodium 137 (137-145) mmol/L Potassium 4.5 (3.5-5.1) mmol/L Chloride 108 H (98-107) mmol/L Carbon Dioxide 22 (22-30) mmol/L Anion Gap 7 mmol/L BUN 10 (7-17) mg/dL Creatinine 0.58 (0.52-1.04) mg/dL Est GFR (CKD-EPI)AfAm >90 (>60 ml/min/1.73 sqM) Est GFR (CKD-EPI)NonAf >90 (>60 ml/min/1.73 sqM) Glucose 152 H (74-99) mg/dL Calcium 8.7 (8.4-10.2) mg/dL Total Bilirubin 1.3 (0.2-1.3) mg/dL AST 33 (14-36) U/L ALT 22 (4-34) U/L Alkaline Phosphatase 59 (38-126) U/L Total Protein 7.1 (6.3-8.2) g/dL Albumin 4.1 (3.5-5.0) g/dL HCG, Qual Urine Color Urine Appearance (Clear) Urine pH (5.0-8.0) Ur Specific Dilliner (1.001-1.035) Urine Protein (Negative) Urine Glucose (UA) (Negative) Urine Ketones (Negative) Urine Blood (Negative) Urine Nitrite (Negative) Urine Bilirubin (Negative) Urine Urobilinogen (<2.0) mg/dL Ur Leukocyte Esterase (Negative) Urine RBC (0-5) /hpf Urine WBC (0-5) /hpf Ur Squamous Epith Cells (0-4) /hpf Urine Mucus (None) /hpf Urine HCG, Qual (Not Detectd) 03/13/25 03/13/25 03/13/25 Range/Units 14:12 17:20 17:20 WBC (4.50-10.00) 10*3/uL RBC (4.10-5.20) 10*6/uL Hgb (12.0-15.0) g/dL Hct (37.2-46.3) % MCV (80.0-97.0) fL MCH (27.0-32.0) pg MCHC (32.0-37.0) g/dL Plt Count (140-440) 10*3/uL MPV (9.5-12.2) fL Immature Gran % (Auto) % Neutrophils % % Lymphocytes % % Monocytes % % Eosinophils % % Basophils % % Immature Gran # (0.00-0.04) 10*3/uL Neutrophils # (1.80-7.70) 10*3/uL Lymphocytes # (0.90-5.00) 10*3/uL Monocytes # (0.20-1.00) 10*3/uL Eosinophils # (0.04-0.35) 10*3/uL Basophils # (0.00-0.10) 10*3/uL Manual Slide Review Immature Plt Fraction (1.1-6.1) % RBC Morphology PT (10.0-12.5) sec INR (<1.2) APTT (22.0-30.0) sec Sodium (137-145) mmol/L Potassium (3.5-5.1) mmol/L Chloride (98-107) mmol/L Carbon Dioxide (22-30) mmol/L Anion Gap mmol/L BUN (7-17) mg/dL Creatinine (0.52-1.04) mg/dL Est GFR (CKD-EPI)AfAm (>60 ml/min/1.73 sqM) Est GFR (CKD-EPI)NonAf (>60 ml/min/1.73 sqM) Glucose (74-99) mg/dL Calcium (8.4-10.2) mg/dL Total Bilirubin (0.2-1.3) mg/dL AST (14-36) U/L ALT (4-34) U/L Alkaline Phosphatase (38-126) U/L Total Protein (6.3-8.2) g/dL Albumin (3.5-5.0) g/dL HCG, Qual Not Detected Urine Color Light Red Urine Appearance Clear (Clear) Urine pH 6.0 (5.0-8.0) Ur Specific Dilliner 1.027 (1.001-1.035) Urine Protein Trace H (Negative) Urine Glucose (UA) Negative (Negative) Urine Ketones Negative (Negative) Urine Blood Large H (Negative) Urine Nitrite Negative (Negative) Urine Bilirubin Negative (Negative) Urine Urobilinogen <2.0 (<2.0) mg/dL Ur Leukocyte Esterase Trace H (Negative) Urine RBC >182 H (0-5) /hpf Urine WBC 5 (0-5) /hpf Ur Squamous Epith Cells 1 (0-4) /hpf Urine Mucus Few H (None) /hpf Urine HCG, Qual Not Detected (Not Detectd) Disposition <Isidra Martinez - Last Filed: 03/13/25 14:04> Is patient prescribed a controlled substance at d/c from ED?: No <Petty Donaldson - Last Filed: 03/16/25 11:23> Clinical Impression: Dysfunctional uterine bleeding Disposition: HOME SELF-CARE Condition: Good Instructions (If sedation given, give patient instructions): Abnormal (Dysfunctional) Uterine Bleeding (ED), Menorrhagia (ED) Additional Instructions: Every disease is a spectrum and a small chance still exists that a serious condition could develop, for this reason, please monitor yourself closely for new, changing or worsening symptoms, symptoms that do not improve over the next 48 hours, bleeding through more than 1 pad an hour for greater than 2 hours, lightheadedness, dizziness or shortness of breath, severe pain fever, inability to tolerate/keep down fluids or your medications, inability to follow up with outpatient providers as instructed and should you experience these symptoms or should you have any further concerns for your wellbeing please return to the ED or call 911 immediately. Please follow-up with your metal miner within 1 week for follow-up regarding today's visit. PLEASE call your primary care physician as soon as possible to arrange / discuss plan for followup appointment. Appointment in the next 1-3 days is strongly encouraged if possible. PLEASE let us know here before you leave if there is anything further we can do to be of any assistance. Take care and feel Better! Referrals: Marisol Ocasio MD [Primary Care Provider] - 1-2 days
[2025-03-13 14:27] LABS: Basophils % (A) 0.6 %; Eosinophils % (A) 3.2 %; HCT 42.8 % (37.2-46.3); Lymphocytes # (A) 2.38 10*3/uL (0.90-5.00); Lymphocytes % (A) 34.2 %; MCH 32.4 pg (27.0-32.0); MCV 92.4 fL (80.0-97.0); Mean Platelet Volume 13.6 fL (9.5-12.2); Monocytes % (A) 8.5 %; Neutrophils % (A) 53.2 %; RBC 4.63 10*6/uL (4.10-5.20); RDW 12.6 % (11.5-14.5); WBC 6.95 10*3/uL (4.50-10.00)
[2025-03-13 14:28] LABS: Basophils # (A) 0.04 10*3/uL (0.00-0.10); Eosinophils # (A) 0.22 10*3/uL (0.04-0.35); Monocytes # (A) 0.59 10*3/uL (0.20-1.00)
[2025-03-13 14:38] LABS: ALT 22 U/L (4-34); African American GFR (CKD) >90 (>60 ml/min/1.73 sqM); Anion Gap 7 mmol/L; Blood Urea Nitrogen 10 mg/dL (7-17); Carbon Dioxide 22 mmol/L (22-30); Chloride 108 mmol/L (98-107); Glucose 152 mg/dL (74-99); Non-African American GFR(CKD) >90 (>60 ml/min/1.73 sqM); Sodium 137 mmol/L (137-145)
[2025-03-13 14:41] LABS: AST 33 U/L (14-36); Albumin 4.1 g/dL (3.5-5.0); Alkaline Phosphatase 59 U/L (38-126); Calcium 8.7 mg/dL (8.4-10.2); Potassium 4.5 mmol/L (3.5-5.1); Total Bilirubin 1.3 mg/dL (0.2-1.3); Total Protein 7.1 g/dL (6.3-8.2)
[2025-03-13 14:52] LABS: INR 0.9 (<1.2); Partial Thromboplastin Time 22.9 sec (22.0-30.0); Prothrombin Time 10.5 sec (10.0-12.5)
--- NOTE | 2025-03-13 15:16 | US ---
EXAMINATION TYPE: US transvaginal DATE OF EXAM: 03/13/2025 COMPARISON: US 2011 CLINICAL INDICATION: Female, 29 years old with history of pain, vb; Pt states heavy vaginal bleeding, LMP over 1 year ago TECHNIQUE: Transvaginal (TV). Transvaginal grayscale sonographic images of the pelvis were acquired. Doppler imaging: Not performed. FINDINGS: Date of LMP: Over 1 year ago EXAM MEASUREMENTS: Uterus: 8.6 x 4.9 x 3.9 cm Endometrial Stripe: 1.0 cm Pt severely, morbidly obese pt- limited views 1. Uterus: Anteverted Heterogeneous 2. Endometrium: Ill-defined 3. Right Ovary: Obscured by overlying bowel gas, and large body habitus 4. Left Ovary: Obscured by overlying bowel gas, and large body habitus 5. Bilateral Adnexa: wnl 6. Posterior cul-de-sac: wnl IMPRESSION: 1. No acute pelvic ultrasound abnormality. There are limitations discussed above. O-RADS 2021 [email or web address] [facility], , 03/13/2025 3:14 PM
[2025-03-13 15:24] LABS: RBC Morphology Normal
[2025-03-13 17:30] VITALS: RESP 19
[2025-03-13 17:41] LABS: Appearance,Urine Clear (Clear); Bilirubin,Urine Negative (Negative); Blood,Urine Large (Negative); Color,Urine Light Red; Glucose,Urine (UA) Negative (Negative); Ketones,Urine Negative (Negative); Leukocyte Esterase,Urine Trace (Negative); Mucus,Urine Few /hpf; Nitrite,Urine Negative (Negative); Protein,Urine Trace (Negative); RBC,Urine >182 /hpf (0-5); Specific Gravity,Urine 1.027 (1.001-1.035); Squamous Epithelial Cell,Urine 1 /hpf (0-4); Urobilinogen,Urine <2.0 mg/dL (<2.0); WBC,Urine 5 /hpf (0-5)
[2025-03-15 22:25] VITALS: BP 132/83; PULSE 68; TEMP 98.3
== END 2025-03-13 18:40 | disposition home or self-care (01) ==
LOC: EC 13:26
DX: N93.8 Other specified abnormal uterine and vaginal bleeding (principal); E66.9 Obesity, unspecified; Z68.43 Body mass index [BMI] 50.0-59.9, adult; Z88.2 Allergy status to sulfonamides
CPT/HCPCS: 36415; 76830; 80053; 81001; 81025; 84703; 85025; 85610; 85730; 99284

== ENCOUNTER → 2025-04-06 | Outpatient (CLI) | payer OTHER ==
[2025-04-06 16:06] LABS: Basophils # (A) 0.07 X 10*3/uL (0.00-0.10); Basophils % (A) 0.9 %; Eosinophils # (A) 0.37 X 10*3/uL (0.04-0.35); Eosinophils % (A) 5.0 %; HCT 47.6 % (37.2-46.3); HGB 15.7 g/dL (12.0-15.0); Immature Grans, Automated 0.30 %; Lymphocytes # (A) 2.63 X 10*3/uL (0.90-5.00); Lymphocytes % (A) 35.5 %; MCH 31.7 pg (27.0-32.0); MCHC 33.0 g/dL (32.0-37.0); MCV 96.0 FL (80.0-97.0); Monocytes # (A) 0.65 X 10*3/uL (0.20-1.00); Monocytes % (A) 8.8 %; NRBC Per 100 WBC 0 X 10*3/uL (0.00-0.01); Neutrophils # (A) 3.67 X 10*3/uL (1.80-7.70); Neutrophils % (A) 49.5 %; Platelet Count 94 X 10*3/uL (140-440); RBC 4.96 X 10*6/uL (4.10-5.20); RBC Morphology Normal (Normal); RDW 12.6 % (11.5-14.5); WBC 7.41 X 10*3/uL (4.50-10.00)
[2025-04-06 16:18] LABS: Follicle Stimulating Hormone 6.6 mIU/mL
== END | disposition home or self-care (01) ==
LOC: LABWHC1 08:40
PROVIDERS: ATTEND Midwife
DX: N91.1 Secondary amenorrhea (principal); F41.1 Generalized anxiety disorder
CPT/HCPCS: 36415; 82306; 83001; 83002; 84144; 84403; 84443; 85025